=== PATIENT | female | born 1985 | race Caucasian/White ===

== ENCOUNTER 2017-06-05 14:55 | Emergency (ER) | payer OTHER ==
--- NOTE | 2017-06-05 15:00 | ER Report ---
History and Physical Time Seen By MD: 14:59 HPI/ROS CHIEF COMPLAINT: Skiing accident HISTORY OF PRESENT ILLNESS: This is a 32-year-old female who presents to the emergency department via EMS for a ski accident, right hip pain and C-spine pain. Patient states that she was [place] local ski today, fell backwards and hit her head on the ground got up immediately after that and continued skiing, then a little bit later developed some C-spine tenderness. Patient also states that as she was getting off a ski lift her skis split apart she felt a popping sound in her right hip, and her fell on top of her aggravating the right hip pain. The patient was taken down by electronic masking system operator and they placed a pelvic binder on her patient states that helped with the hip pain. EMS transported the patient into the emergency department for further evaluation. In route the patient got 200 g of IV fentanyl, 12 mg IV Zofran. Patient denies headaches, or vomiting, she does have some mild nausea. Patient denies aches, chills, fevers, dysuria or numbness or tingling. REVIEW OF SYSTEMS: Constitutional: No fever, no chills. Eyes: No discharge. ENT: No sore throat. Cardiovascular: No chest pain, no palpitations. Respiratory: No cough, no shortness of breath. Gastrointestinal: As above. Genitourinary: No hematuria. Musculoskeletal: As above. Skin: No rashes. Neurological: No headache. Allergies: Coded Allergies: No Known Drug Allergies (Unverified , 06/05/17) Home Meds No Active Prescriptions or Reported Meds Past Medical/Surgical History Patient has a past medical and surgical history of and vaginal delivery. Reviewed Nurses Notes: Yes Constitutional Vital Sign - Last 24 Hours 06/05/17 06/05/17 06/05/17 06/05/17 14:55 14:57 14:58 15:00 Temp 98.0 Pulse ??? 93 Resp 18 B/P (MAP) 104/74 104/74 (84) 119/71 (87) Pulse Ox 98 O2 Delivery Room Air 06/05/17 06/05/17 06/05/17 06/05/17 15:10 15:25 15:30 15:40 Pulse 92 76 ??? Resp 11 B/P (MAP) 114/79 (91) Pulse Ox 99 97 06/05/17 06/05/17 06/05/17 06/05/17 15:55 16:00 16:10 16:25 Pulse ? B/P (MAP) 111/68 (82) 06/05/17 06/05/17 06/05/17 06/05/17 16:30 16:35 17:00 17:05 Pulse 84 ??? B/P (MAP) 108/68 (81) 114/71 (85) Pulse Ox 98 06/05/17 06/05/17 06/05/17 06/05/17 17:20 17:30 17:35 17:45 Pulse 84 85 85 Resp 12 12 9 B/P (MAP) 109/62 (78) Pulse Ox 97 96 98 06/05/17 06/05/17 17:55 18:00 Pulse 81 Resp 8 B/P (MAP) 112/65 (81) Pulse Ox 99 Intake and Output 06/05/17 06/05/17 06/06/17 15:00 23:00 07:00 Intake Total 1000 ml Balance 1000 ml Physical Exam General Appearance: The patient is alert, has no immediate need for airway protection and no signs of toxicity, c-collar in place. Eyes: Pupils equal and round no pallor or injection. ENT, Mouth: Mucous membranes are moist. Respiratory: There are no retractions, lungs are clear to auscultation. Cardiovascular: Regular rate and rhythm, no murmurs, clicks or rubs. Gastrointestinal: Abdomen is soft and non tender, no masses, bowel sounds normal. Neurological: Alert and oriented 4. Moving all extremities. Following all commands. No focal neuro deficits. Cranial nerves II through XII intact. No numbness or tingling. Skin: Warm and dry, no rashes. Musculoskeletal: Neck is supple, C-spine tenderness with palpation. No step- offs, crepitus or deformities. Extremities right lateral hip pain around the proximal femur. It does appear that there might be some slight shortening of the right leg. No internal or external rotation. DIFFERENTIAL DIAGNOSIS: After history and physical exam differential diagnosis was considered for contusion, pelvic fracture, femoral neck fracture, cervical strain, cervical fracture. Medical Decision Making EKG/Imaging Imaging Location: [facility] [place] Patient: Ness Whatley : 1985 Visit/Account:[id number] Date of : 06/05/2017 INDICATION: pain to right hip, ski accident. DATE: 06/05/2017 5:36 PM. TECHNIQUE: HIP RIGHT W/O CONTRAST. Noncontrast axial CT imaging was performed through the right hip with sagittal and coronal reformats. One of the following dose optimization techniques was utilized in the performance of this exam: Automated exposure control; adjustment of the mA and/or kV according to the patient's size; or use of an iterative reconstruction technique. Specific details can be referenced in the facility's radiology CT exam operational policy. COMPARISON: Radiographs of the same day FINDINGS: There is no fracture or dislocation at the right hip. No degenerative findings. Probable bone island in the femoral head and the ileum. Soft tissues are unremarkable by CT. Muscle bulk is normal. IMPRESSION: No fracture or dislocation of the right hip. Report Dictated By: Daylin Levine MD at 06/05/2017 5:36 PM Report E-Signed By: Daylin Levine MD at 06/05/2017 5:47 PM WSN:[id number] Location: [facility] [place] Patient: Ness Whatley : 1985 Visit/Account:[id number] Date of : 06/05/2017 CT Cervical Spine Indication: Neck pain after ski accident. Comparison: None available. Technique: Axial CT imaging of the cervical spine was performed. 2-D sagittal and coronal CT reformats were also obtained. One of the following dose optimization techniques was utilized in the performance of this exam: automated exposure control; adjustment of the mA and/ or kV according to the patient's size; or use of an iterative reconstruction technique. Specific details can be referenced in the facility's radiology CT exam operational policy. Findings: The vertebral bodies are aligned. No fracture or facet dislocation. No bony lesions or appreciable degenerative changes. No obvious disc herniation. Endplates are maintained. Prevertebral soft tissues and strong soft tissues are unremarkable. Lung apices are clear. Impression: 1. No acute osseous or acute alignment abnormality of the cervical spine Report Dictated By: Cirilo Gómez at 06/05/2017 4:06 PM Report E-Signed By: Cirilo Gómez at 06/05/2017 4:10 PM WSN:[id number] Location: [facility] [place] Patient: Ness Whatley : 1985 Visit/Account:[id number] Date of Sevice: 06/05/2017 EXAMINATION: Right hip, 2 views 06/05/2017 3:10 PM HISTORY: Skiing accident. Right hip pain. COMPARISON: None FINDINGS: Images include AP pelvis and frog-leg right hip Visualized bony structures are intact and anatomically aligned without fracture or other acute osseous abnormality evident. IMPRESSION: Negative exam. Report Dictated By: Fly Loco MD at 06/05/2017 4:07 PM Report E-Signed By: Fly Loco MD at 06/05/2017 4:09 PM WSN:[id number] ED Course/Re-evaluation Clinical Indication for ER IV: Hydration, IV Access ED Course Patient was admitted to room. A history and physical obtained. Differential diagnoses were considered. An IV was started via EMS. 1 L normal saline bolus was given in route. Given 200 micrograms of IV fentanyl and route as well as 12 mg IV Zofran in route. A CT of the cervical spine was negative for any acute abnormalities. Negative pelvis and right hip x-ray. I did review these results with the patient and her . Patient is still having significant pain to the right hip. I did suggest we go ahead and CT the right hip to make sure there is no other abnormalities identified. Patient is agreeable with this plan. Patient was given 4 mg IV morphine [address] of the right hip was negative for any acute findings. I did tell him that this is likely a muscle strain. I did review these results with the patient and her both of which were pleased that there was no fracture. Patient declined nausea or pain medications to go home with. They do plan to stay here until Wednesday then return to [place]. I did instruct them to stop every 1-2 hours and get out for probably 10-15 minutes to get some range of motion to the right hip. The patient had no other questions or concerns at this time and they were discharged home. They're also encouraged to return to emergency Department with any other concerns or worsening symptoms. [place] CT head score 0, therefore there was no head CT obtained. 06/05/2017 4:52:[address] The c-collar was removed. Patient was able to flex and extend and rotate from right to left without discomfort. No changes in neurological status. Decision to Disposition Date: Jun 05, 2017 Decision to Disposition Time: 17:56 Depart Departure Latest Vital Signs Vital Signs Date Time Temp Pulse Resp B/P (MAP) Pulse Ox O2 Delivery O2 Flow Rate FiO2 06/05/17 18:00 112/65 (81) 06/05/17 17:55 81 8 99 06/05/17 14:57 98.0 Room Air Impression: Primary Impression: Right hip pain Additional Impression: Ski lift accident Condition: Improved Disposition: HOME OR SELF-CARE New Scripts No Active Prescriptions or Reported Meds Patient Instructions: Hip Pain (ED) Additional Instructions: Drink plenty of water. Get plenty of rest. Take Ibuprofen or Tylenol as needed for pain. Be sure to try some gentle range of motion exercises. On your way back to [place] stop every 1-2 hours and ambulate for 10-15 minutes. May return to the ED for worsening symptoms or any other concerns. Problem Qualifiers Additional Impression: Ski lift accident Encounter type: initial encounter Qualified Codes: V98.3XXA - Accident to, on or involving ski lift, initial encounter RICHELLE RAMÍREZ-LAUREN Jun 05, 2017 15:00
[2017-06-05] MEDS ORDERED: MORPHINE 4 MG/ML SDV IVP ONE ×2 (15:10→16:50)
--- NOTE | 2017-06-05 16:12 | RADIOLOGY IMAGING REPORT ---
FACILITY: [facility] PATIENT NAME: Ness Whatley : 1985 MR: [id number] V: [id number] EXAM DATE: ORDERING PHYSICIAN: RICHELLE RAMÍREZ TECHNOLOGIST: Location: [facility] Patient: Ness Whatley : 1985 Visit/Account:[id number] Date of Sevice: 06/05/2017 EXAMINATION: Right hip, 2 views 06/05/2017 3:10 PM HISTORY: Skiing accident. Right hip pain. COMPARISON: None FINDINGS: Images include AP pelvis and frog-leg right hip Visualized bony structures are intact and anatomically aligned without fracture or other acute osseous abnormality evident. IMPRESSION: Negative exam. Report Dictated By: Fly Loco MD at 06/05/2017 4:07 PM Report E-Signed By: Fly Loco MD at 06/05/2017 4:09 PM WSN:[id number]
--- NOTE | 2017-06-05 16:13 | RADIOLOGY IMAGING REPORT ---
FACILITY: [facility] [place] PATIENT NAME: Ness Whatley : 1985 MR: [id number] V: [id number] EXAM DATE: ORDERING PHYSICIAN: RICHELLE RAMÍREZ TECHNOLOGIST: Location: [facility] Patient: Ness Whatley : 1985 Visit/Account:[id number] Date of Sevice: 06/05/2017 CT Cervical Spine Indication: Neck pain after ski accident. Comparison: None available. Technique: Axial CT imaging of the cervical spine was performed. 2-D sagittal and coronal CT reforma ts were also obtained. One of the following dose optimization techniques was utilized in the performance of this exam: autom ated exposure control; adjustment of the mA and/or kV according to the patient's size; or use of an i terative reconstruction technique. Specific details can be referenced in the facility's radiology CT exam operational policy. Findings: The vertebral bodies are aligned. No fracture or facet dislocation. No bony lesions or appreciable de generative changes. No obvious disc herniation. Endplates are maintained. Prevertebral soft tissues a nd strong soft tissues are unremarkable. Lung apices are clear. Impression: 1. No acute osseous or acute alignment abnormality of the cervical spine Report Dictated By: Cirilo Gómez at 06/05/2017 4:06 PM Report E-Signed By: Cirilo Gómez at 06/05/2017 4:10 PM WSN:[id number]
[2017-06-05] MEDS ORDERED: EMS NS 0.9%(*) 1000 ML BAG 1,000 ML IV ONE (16:30)
--- NOTE | 2017-06-05 17:50 | RADIOLOGY IMAGING REPORT ---
FACILITY: [facility] PATIENT NAME: Ness Whatley : 1985 MR: [id number] V: [id number] EXAM DATE: ORDERING PHYSICIAN: RICHELLE RAMÍREZ TECHNOLOGIST: Location: [facility] Patient: Ness Whatley : 1985 Visit/Account:[id number] Date of Sevice: 06/05/2017 INDICATION: pain to right hip, ski accident. DATE: 06/05/2017 5:36 PM. TECHNIQUE: HIP RIGHT W/O CONTRAST. Noncontrast axial CT imaging was performed through the right hip w ith sagittal and coronal reformats. One of the following dose optimization techniques was utilized in the performance of this exam: Automated exposure control; adjustment of the mA and/or kV according t o the patient's size; or use of an iterative reconstruction technique. Specific details can be refe renced in the facility's radiology CT exam operational policy. COMPARISON: Radiographs of the same day FINDINGS: There is no fracture or dislocation at the right hip. No degenerative findings. Probable bone island in the femoral head and the ileum. Soft tissues are unremarkable by CT. Muscle bulk is normal. IMPRESSION: No fracture or dislocation of the right hip. Report Dictated By: Daylin Levine MD at 06/05/2017 5:36 PM Report E-Signed By: Daylin Levine MD at 06/05/2017 5:47 PM WSN:[id number]
[2017-06-05 18:00] VITALS: BP 112/65
[2017-06-05] MEDS ORDERED: PROMETHAZINE HCL(*) 25 MG SUPP PR PRN (18:15)
[2017-06-05] MEDS ORDERED: PROMETHAZINE HCL 25 MG TAB TH 2 TAB/BOTTLE PO ONE (18:15)
== END 2017-06-05 18:16 | disposition home or self-care (01) ==
LOC: ER 15:02
DX: M25.551 Pain in right hip (principal); V98.3XXA Accident to, on or involving ski lift, initial encounter
CPT/HCPCS: 72125; 73502; 73700; 96361; 96374; 96376; 99284; J2270; J8498

== ENCOUNTER → 2017-06-05 | Outpatient (CLI) | payer OTHER | LOC: AMB 13:42 | PROVIDERS: ATTEND Nurse Practitioner | DX: M25.551 Pain in right hip (principal); M54.2 Cervicalgia; R10.9 Unspecified abdominal pain; R11.0 Nausea; W17.89XA Other fall from one level to another, initial encounter | CPT/HCPCS: A0425; A0433 ==